=== PATIENT | male | born 1940 | race Caucasian/White ===

== ENCOUNTER 2016-09-13 16:53 | Inpatient (IN) | payer MEDICARE, MEDICAID ==
[~2016-09-13] VITALS: Ht 170.2 cm; Wt 72.6 kg
--- NOTE | 2016-09-13 16:53 | NUR ---
BIB PRIVATE EMT FROM [facility]IN [facility] FOR "AGGRESSIVE BEHAVIOR". PLACED ON MONITOR. AWAITING MD ORDER
--- NOTE | 2016-09-13 17:05 | NUR ---
EKG IN PROGRESS
--- NOTE | 2016-09-13 17:05 | NUR ---
CEMENT BREAKER AT BEDSIDE BLOOD SAMPLE COLLECTED SENT TO LAB
[2016-09-13 17:17] LABS: BASOPHILS % (AUTO) 0.9 % (0.0-2.0); EOSINOPHILS # (AUTO) 0.1 /CMM (0.0-0.7); EOSINOPHILS % (AUTO) 1.9 % (0.0-6.0); HEMATOCRIT 42 % (39-51); HEMOGLOBIN 14.4 g/dL (13.5-17.5); LYMPHOCYTES # (AUTO) 0.8 /CMM (0.8-4.8); LYMPHOCYTES % (AUTO) 15.5 % (20.0-44.0); MEAN CORPUSCULAR HEMOGLOBIN 31 PG (26.0-33.0); MEAN CORPUSCULAR HGB CONC 34 g/dl (31.0-36.0); MEAN CORPUSCULAR VOLUME 91 fL (80-96); MONOCYTES # (AUTO) 0.6 /CMM (0.1-1.30); NEUTROPHILS # (AUTO) 3.7 /CMM (1.8-8.9); NEUTROPHILS % (AUTO) 69.7 % (43.0-81.0); PLATELET COUNT (AUTO) 256 /CMM (150-450); RDW COEFFICIENT OF VARIATION 13.9 (11.5-15.0); RED BLOOD CELL COUNT(AUTO) 4.61 MIL/uL (4.5-6.0); WHITE BLOOD COUNT (AUTO) 5.2 K/uL (4.3-11.0)
[2016-09-13] MEDS ORDERED: ASPI-605 PO (17:18)
[2016-09-13] MEDS ORDERED: SENN-18 PO (17:18)
[2016-09-13] MEDS ORDERED: CHOL100040 PO (17:18)
[2016-09-13] MEDS ORDERED: ATOR20TA PO (17:18)
[2016-09-13] MEDS ORDERED: SPIR25TA4 PO (17:18)
[2016-09-13] MEDS ORDERED: AMLO5TAB4 PO (17:18)
[2016-09-13] MEDS ORDERED: DOCU-170 PO (17:18)
[2016-09-13] MEDS ORDERED: COGENTIN PO (17:18)
--- NOTE | 2016-09-13 17:22 | NUR ---
CALLED [facility]- CHARLENE ETA OF 1 HR
[2016-09-13 17:25] LABS: CALCIUM, SERUM 9.2 mg/dL (8.5-10.1); CARBON DIOXIDE 30 mmol/L (21-32); CHLORIDE 102 mmol/L (98-107); CREATININE 0.8 mg/dL (0.6-1.3); GLUCOSE 133 mg/dL (74-106); POTASSIUM 3.7 mmol/L (3.5-5.1); SODIUM SERUM 139 mmol/L (136-145); UREA NITROGEN, BLOOD 14 mg/dL (7-18)
--- NOTE | 2016-09-13 17:30 | NUR ---
PT HASMICHAEL PROVIDE URINE SAMPLE DR MADDEN AWARE
--- NOTE | 2016-09-13 17:30 | NUR ---
PT TAKEN TO CT VIA [facility]
[2016-09-13 17:31] LABS: ALANINE AMINOTRANSFERASE 51 U/L (12-78); ALBUMIN 3.8 g/dL (3.4-5.0); ALCOHOL, BLOOD < 3 mg/dL (0-0); ALKALINE PHOSPHATASE 93 U/L (46-116); ASPARTATE AMINOTRANSFERASE 42 U/L (15-37); BILIRUBIN,DIRECT 0.2 mg/dL (0.0-0.2); BILIRUBIN,TOTAL 0.5 mg/dL (0.2-1.0); TOTAL PROTEIN, SERUM 7.4 g/dL (6.4-8.2)
[2016-09-13 17:33] LABS: TROPONIN I < 0.017 ng/mL (0.00-0.056)
[2016-09-13 17:41] LABS: THYROID STIMULATING HORMONE 1.839 uIU/mL (0.358-3.74)
--- NOTE | 2016-09-13 18:32 | NUR ---
PINKY AT BEDSIDE FOR PSYCH EVAL
[2016-09-13] MEDS ORDERED: LORAZEPAM INJ 2 MG/ML VIAL IV ONE (19:00)
[2016-09-13] MEDS ORDERED: LORAZEPAM INJ 2 MG/ML VIAL ONE (19:08)
--- NOTE | 2016-09-13 19:18 | NUR ---
GAVE REPORT TO RADHA TUCKER FOR JULIAN
--- NOTE | 2016-09-13 19:21 | NUR ---
REPORT GIVEN TO NIKI SALGADO FOR CONTINUE OF CARE.
--- NOTE | 2016-09-13 19:32 | NUR ---
PT TRANSFERED VIA [facility] TO [facility].
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
[2016-09-13 20:00] VITALS: BP_SYST 145; BP_SYST 168; BP_DIAS 76; BP_DIAS 88
[2016-09-13] MEDS ORDERED: MAGNESIUM HYDROXIDE 30 ML UDC PO PRN (20:00)
[2016-09-13] MEDS ORDERED: MAG HYDROX/AL HYDROX/SIMETH 30 ML UDC PO PRN (20:00)
[2016-09-13] MEDS ORDERED: ACETAMINOPHEN 325 MG TABLET PO PRN (20:00)
[2016-09-13 20:29] LABS: CHOLESTEROL 188 mg/dL (<200); HDL CHOLESTEROL 84 mg/dL (40-60); LDL 80 mg/dL (0-99); TRIGLYCERIDES 42 mg/dL (30-150)
[2016-09-13] MEDS ORDERED: TEMAZEPAM 7.5 MG CAPSULE ONE (22:15)
[2016-09-13] MEDS: TEMAZEPAM 7.5 MG CAPSULE PO PRN (22:23)
--- NOTE | 2016-09-13 22:23 | NUR ---
GPS RN NOTE, PATIENT HAS A COMPLAINT OF NOT BEING ABLE TO SLEEP AND WOULD LIKE A SLEEPING AID AT THIS TIME. PATIENT VITAL SIGNS ARE STABLE. GAVE RESTORIL 7.5MG PO HS ORDERED. WILL REASSESS FOR INSOMNIA AND I WILL CONTINUE TO MONITOR THIS PATIENT.
[2016-09-13] MEDS ORDERED: ATORVASTATIN 10 MG TABLET ONE (22:50)
[2016-09-13] MEDS ORDERED: AMLODIPINE BESYLATE 5 MG TABLET ONE (22:51)
[2016-09-13] MEDS: AMLODIPINE BESYLATE 5 MG TABLET PO SCH (22:56)
[2016-09-13] MEDS: ATORVASTATIN 10 MG TABLET PO SCH (22:56)
--- NOTE | 2016-09-13 22:56 | NUR ---
GPS RN NOTE, PATIENT B/P IS 145/76 GAVE NORVASC 5MG PO Q12HR AND LIPITOR 20MG PO HS ORDERED. WILL CONTINUE TO MONITOR THIS PATIENT.
[2016-09-14] MEDS ORDERED: LORAZEPAM 0.5 MG TABLET ONE (03:31)
[2016-09-14] MEDS: LORAZEPAM 0.5 MG TABLET PO PRN (03:35)
--- NOTE | 2016-09-14 03:35 | NUR ---
GPS RN NOTE, PATIENT HAS A COMPLAINT OF FEELING ANXIOUS AND WOULD LIKE MEDICATION AT THIS TIME. PATIENT VITAL SIGNS ARE STABLE. GAVE ATIVAN 0.5MG PO Q6HR PRN ORDERED. WILL REASSESS FOR ANXIETY AND I WILL CONTINUE TO MONITOR THIS PATIENT.
[2016-09-14 08:00] VITALS: BP 143/73
[2016-09-14] MEDS: DOCUSATE SODIUM 100 MG CAPSULE PO SCH ×2 (08:34→16:25)
[2016-09-14] MEDS: ASPIRIN EC 81 MG TABLET.DR PO SCH (08:34)
[2016-09-14] MEDS: SPIRONOLACTONE 25 MG TABLET PO SCH (08:34)
[2016-09-14] MEDS: CHOLECALCIFEROL 1,000 UNIT TABLET (VIT D3) PO SCH (08:34)
[2016-09-14 08:42] LABS: BASOPHILS # (AUTO) 0.1 /CMM (0.0-0.2); BASOPHILS % (AUTO) 1.9 % (0.0-2.0); EOSINOPHILS # (AUTO) 0.2 /CMM (0.0-0.7); EOSINOPHILS % (AUTO) 3.5 % (0.0-6.0); HEMATOCRIT 42 % (39-51); HEMOGLOBIN 14.4 g/dL (13.5-17.5); LYMPHOCYTES # (AUTO) 1.2 /CMM (0.8-4.8); LYMPHOCYTES % (AUTO) 24.4 % (20.0-44.0); MEAN CORPUSCULAR HEMOGLOBIN 31 PG (26.0-33.0); MEAN CORPUSCULAR HGB CONC 34 g/dl (31.0-36.0); MEAN CORPUSCULAR VOLUME 91 fL (80-96); MONOCYTES # (AUTO) 0.7 /CMM (0.1-1.30); NEUTROPHILS # (AUTO) 2.6 /CMM (1.8-8.9); NEUTROPHILS % (AUTO) 55.2 % (43.0-81.0); PLATELET COUNT (AUTO) 246 /CMM (150-450); RDW COEFFICIENT OF VARIATION 12.7 (11.5-15.0); RED BLOOD CELL COUNT(AUTO) 4.64 MIL/uL (4.5-6.0); WHITE BLOOD COUNT (AUTO) 4.8 K/uL (4.3-11.0)
[2016-09-14 08:49] LABS: ALANINE AMINOTRANSFERASE 56 U/L (12-78); ALBUMIN 3.9 g/dL (3.4-5.0); ALKALINE PHOSPHATASE 92 U/L (46-116); ASPARTATE AMINOTRANSFERASE 45 U/L (15-37); BILIRUBIN,TOTAL 0.5 mg/dL (0.2-1.0); CALCIUM, SERUM 9.7 mg/dL (8.5-10.1); CARBON DIOXIDE 26 mmol/L (21-32); CHLORIDE 102 mmol/L (98-107); CREATININE 0.7 mg/dL (0.6-1.3); GLUCOSE 104 mg/dL (74-106); POTASSIUM 3.7 mmol/L (3.5-5.1); SODIUM SERUM 139 mmol/L (136-145); TOTAL PROTEIN, SERUM 7.5 g/dL (6.4-8.2); UREA NITROGEN, BLOOD 14 mg/dL (7-18)
--- NOTE | 2016-09-14 11:21 | NUR ---
[id number]-RC-[id number]: NOTIFIED DR. CADE ABOUT RESULTS FOR CT OF THE HEAD AND CT OF FACIAL BONES. PT IS . DR. CADE SAID PT IS GOING TO SEE A ENT PHYSICIAN TOMORROW.
--- NOTE | 2016-09-14 11:31 | NUR ---
[id number]: DR. CADE ORDERED PHYSICIAN CONSULT FOR DR. RINCON TO COME SEE PT TOMORROW
[2016-09-14 11:45] VITALS: BP 144/75
[2016-09-14] MEDS: AMLODIPINE BESYLATE 5 MG TABLET PO SCH ×2 (11:50→23:58)
[2016-09-14] MEDS ORDERED: clonazePAM 0.5 MG TABLET PO PRN (12:00)
[2016-09-14] MEDS: OLANZAPINE 5 MG/TAB.RAPDIS PO SCH ×2 (12:09→16:25)
[2016-09-14] MEDS: OXCARBAZEPINE 150 MG TABLET PO SCH ×2 (12:09→16:25)
[2016-09-14 16:05] VITALS: BP 141/73
[2016-09-14] MEDS ORDERED: SODIUM POLYSTYRENE SULFONATE 15 G/60 ML BOTTLE PO ONE (17:00)
[2016-09-14 20:37] VITALS: BP 123/69
[2016-09-14] MEDS: SENNOSIDES 8.6 MG TABLET PO SCH (21:29)
[2016-09-14] MEDS: ATORVASTATIN 10 MG TABLET PO SCH (21:29)
[2016-09-14] MEDS: TRAZODONE 50 MG TABLET PO SCH (21:30)
[2016-09-15 08:00] VITALS: BP 135/62
[2016-09-15] MEDS: ASPIRIN EC 81 MG TABLET.DR PO SCH (08:40)
[2016-09-15] MEDS: SPIRONOLACTONE 25 MG TABLET PO SCH (08:40)
[2016-09-15] MEDS: DOCUSATE SODIUM 100 MG CAPSULE PO SCH ×2 (08:40→16:34)
[2016-09-15] MEDS: OXCARBAZEPINE 150 MG TABLET PO SCH ×3 (08:41→16:34)
[2016-09-15] MEDS: OLANZAPINE 5 MG/TAB.RAPDIS PO SCH ×3 (08:41→16:34)
[2016-09-15] MEDS: CHOLECALCIFEROL 1,000 UNIT TABLET (VIT D3) PO SCH (08:43)
[2016-09-15] MEDS: AMLODIPINE BESYLATE 5 MG TABLET PO SCH ×2 (11:47→22:18)
--- NOTE | 2016-09-15 14:38 | NUR ---
[id number]: NOTIFIED DR. CADE THAT DR. RINCON SEEN AND EXAMINED PT AND STATED, "THERE IS NOTHING TO DO AT THIS TIME." NO NEW ORDER GIVEN.
[2016-09-15 16:20] VITALS: BP 150/90
[2016-09-15 20:41] VITALS: BP 143/70
[2016-09-15] MEDS: SENNOSIDES 8.6 MG TABLET PO SCH (22:00)
[2016-09-15] MEDS: ATORVASTATIN 10 MG TABLET PO SCH (22:00)
[2016-09-15] MEDS: TRAZODONE 50 MG TABLET PO SCH (22:00)
[2016-09-16 08:00] VITALS: BP 150/78
[2016-09-16] MEDS: CHOLECALCIFEROL 1,000 UNIT TABLET (VIT D3) PO SCH (08:28)
[2016-09-16] MEDS: SPIRONOLACTONE 25 MG TABLET PO SCH (08:28)
[2016-09-16] MEDS: ASPIRIN EC 81 MG TABLET.DR PO SCH (08:28)
[2016-09-16] MEDS: OXCARBAZEPINE 150 MG TABLET PO SCH ×3 (08:29→16:58)
[2016-09-16] MEDS: DOCUSATE SODIUM 100 MG CAPSULE PO SCH ×2 (08:29→16:58)
[2016-09-16] MEDS: OLANZAPINE 5 MG/TAB.RAPDIS PO SCH ×3 (08:29→16:58)
--- NOTE | 2016-09-16 09:27 | NUR ---
Initial Discharge Plan: Patient was residing at [address] [address] ([phone]). research worker kitchen spoke to patient's friend Frieda Mahesh ([phone]) who stated that patient has been in and out of psychiatric hospitals and facilities. research worker kitchen spoke to Gopi from the facility who stated that patient was not appropriate for their facility as he is an elopement risk. research worker kitchen will help form a safe and proper discharge.
[2016-09-16] MEDS: AMLODIPINE BESYLATE 5 MG TABLET PO SCH ×2 (11:33→22:07)
--- NOTE | 2016-09-16 12:26 | NUR ---
relay worker faxed initial review packet to Jaclyn from [facility] (phone: [phone]/ ). relay worker will follow-up.
--- NOTE | 2016-09-16 15:19 | NUR ---
WOUND CARE CONSULT: LIMITED ASSESSMENT TODAY DUE TO PT AGITATED AND BECOMES COMBATIVE AT TIMES. PT NOT TURNED FOR FULL SKIN ASSESSMENT OF BACK AND BUTTOCKS. PT SEEN FOR NOSE ABRASIONS, DRY AND RED. PT SEEN BY DR REYNOLDS AND ORDERS RECEIVED. DISCUSSED WITH NURSING STAFF. RECOMMENDATIONS MADE FOR SKIN PROTECTION AND DISCUSSED WITH NURSING STAFF. WILL SEE PRN. PT TO BE TURNED AND REPOSITIONED EVERY 2 HRS PT CONDITION PERMITS, HEELS FLOATED. MD IN AGREEMENT WITH PLAN OF CARE. Addendum: 09/16/16 at 1523 by EUGENIO BRAGG WNDNU Amended: Links added.
[2016-09-16] MEDS ORDERED: Z GUARD REMEDY 2 OZ OINT TP PRN (15:30)
[2016-09-16 16:00] VITALS: BP 134/81
[2016-09-16] MEDS: NEOMY SULF/BACITRAC ZN/POLY 15 GM TUBE TP SCH (17:42)
[2016-09-16 19:54] VITALS: BP 153/85
[2016-09-16] MEDS: TRAZODONE 50 MG TABLET PO SCH (21:54)
[2016-09-16] MEDS: SENNOSIDES 8.6 MG TABLET PO SCH (21:55)
[2016-09-16] MEDS: ATORVASTATIN 10 MG TABLET PO SCH (21:55)
[2016-09-16] MEDS: Z GUARD REMEDY 2 OZ OINT TP SCH (22:08)
[2016-09-17 08:00] VITALS: BP 137/76
[2016-09-17] MEDS: SPIRONOLACTONE 25 MG TABLET PO SCH (08:26)
[2016-09-17] MEDS: OLANZAPINE 5 MG/TAB.RAPDIS PO SCH ×3 (08:26→16:11)
[2016-09-17] MEDS: OXCARBAZEPINE 150 MG TABLET PO SCH ×3 (08:26→16:11)
[2016-09-17] MEDS: ASPIRIN EC 81 MG TABLET.DR PO SCH (08:26)
[2016-09-17] MEDS: DOCUSATE SODIUM 100 MG CAPSULE PO SCH ×2 (08:26→16:11)
[2016-09-17] MEDS: Z GUARD REMEDY 2 OZ OINT TP SCH (08:26)
[2016-09-17] MEDS: CHOLECALCIFEROL 1,000 UNIT TABLET (VIT D3) PO SCH (08:26)
[2016-09-17] MEDS: NEOMY SULF/BACITRAC ZN/POLY 15 GM TUBE TP SCH (08:27)
--- NOTE | 2016-09-17 10:47 | NUR ---
WOUND CARE: PT INCONTINENT AND HAS DIFFICULTY WITH MOBILITY. SMALL DRY SCAB NOTED TO BACK, PRESENT ON ADMISSION. CONTINUE ALL SKIN PROTECTION MEASURES. DISCUSSED WITH NURSING STAFF. WILL SEE PRN. RECIO IN AGREEMENT WITH PLAN OF CARE. Addendum: 09/17/16 at 1048 by EUGENIO BRAGG WNDNU Amended: Links added.
[2016-09-17] MEDS: AMLODIPINE BESYLATE 5 MG TABLET PO SCH ×2 (12:20→22:02)
[2016-09-17 16:00] VITALS: BP 136/69
[2016-09-17 20:23] VITALS: BP 122/82
[2016-09-17] MEDS: SENNOSIDES 8.6 MG TABLET PO SCH (22:00)
[2016-09-17] MEDS: TRAZODONE 50 MG TABLET PO SCH (22:00)
[2016-09-17] MEDS: ATORVASTATIN 10 MG TABLET PO SCH (22:01)
[2016-09-18] MEDS: TEMAZEPAM 7.5 MG CAPSULE PO PRN (00:31)
[2016-09-18 08:03] VITALS: BP 130/70
[2016-09-18] MEDS: NEOMY SULF/BACITRAC ZN/POLY 15 GM TUBE TP SCH ×2 (09:00→09:13)
[2016-09-18] MEDS: DOCUSATE SODIUM 100 MG CAPSULE PO SCH ×3 (09:00→17:00)
[2016-09-18] MEDS: OLANZAPINE 5 MG/TAB.RAPDIS PO SCH ×4 (09:00→17:00)
[2016-09-18] MEDS: ASPIRIN EC 81 MG TABLET.DR PO SCH ×2 (09:00→09:12)
[2016-09-18] MEDS: SPIRONOLACTONE 25 MG TABLET PO SCH ×2 (09:00→09:12)
[2016-09-18] MEDS: CHOLECALCIFEROL 1,000 UNIT TABLET (VIT D3) PO SCH ×2 (09:00→09:12)
[2016-09-18] MEDS: OXCARBAZEPINE 150 MG TABLET PO SCH ×3 (09:12→17:00)
[2016-09-18] MEDS: Z GUARD REMEDY 2 OZ OINT TP SCH (09:13)
--- NOTE | 2016-09-18 09:13 | NUR ---
administered klonopin 0.5 mg po prn for anxiety, paranoia, v/s taken bp-110/72, p-76, continued monitoring.
[2016-09-18] MEDS: AMLODIPINE BESYLATE 5 MG TABLET PO SCH ×2 (11:00→22:04)
--- NOTE | 2016-09-18 12:34 | NUR ---
older worker specialist faxed initial review packet to [facility] (phone: [phone]/ fax: [phone]) [address] [facility] [address]. However, medical social worker spoke to Yue from admissions who stated that they cannot except the patient because they ran his insurance and he did not have any medicare days. older worker specialist will follow-up
[2016-09-18 15:39] VITALS: BP 142/64
--- NOTE | 2016-09-18 15:43 | NUR ---
cone worker spoke to Jaclyn from [facility] (phone: [phone]/ ). who stated that they cannot accept the patient at the moment due to insurance day availability. cone worker will follow-up.
--- NOTE | 2016-09-18 17:50 | NUR ---
PATIENT REFUSED 1300, AND 1700 MEDICATION, EXPLAINED IMPORTANT OF TAKING MEDICATION, BUT STILL REFUSED, MD MILLS, AND EROS NICHOLSON AWARE OF, CONTINUED MONITORING.
[2016-09-18 20:00] VITALS: BP 159/95
[2016-09-18 20:14] VITALS: BP 159/95
--- NOTE | 2016-09-18 20:20 | NUR ---
GPS RN OPENING NOTES: Received patient in bed , awake, alert to name, confused and disorganized. Verbally responsive to stimuli. No complain of any pain or discomfort. On room air. No acute respiratory distress noted. Up in the gerichair . Safety measures maintained. Clean and dry. Will continue to monitor.
[2016-09-18] MEDS: TRAZODONE 50 MG TABLET PO SCH (21:42)
[2016-09-18] MEDS: ATORVASTATIN 10 MG TABLET PO SCH (21:42)
[2016-09-18] MEDS: SENNOSIDES 8.6 MG TABLET PO SCH (21:42)
[2016-09-19] MEDS: TEMAZEPAM 7.5 MG CAPSULE PO PRN (00:02)
[2016-09-19] MEDS: LORAZEPAM 0.5 MG TABLET PO PRN (00:02)
[2016-09-19 08:33] VITALS: BP 143/75
[2016-09-19] MEDS: OLANZAPINE 5 MG/TAB.RAPDIS PO SCH ×2 (08:43→17:40)
[2016-09-19] MEDS: SPIRONOLACTONE 25 MG TABLET PO SCH (08:44)
[2016-09-19] MEDS: DOCUSATE SODIUM 100 MG CAPSULE PO SCH ×2 (08:44→17:40)
[2016-09-19] MEDS: OXCARBAZEPINE 150 MG TABLET PO SCH ×3 (08:44→17:40)
[2016-09-19] MEDS: CHOLECALCIFEROL 1,000 UNIT TABLET (VIT D3) PO SCH (08:45)
[2016-09-19] MEDS: ASPIRIN EC 81 MG TABLET.DR PO SCH (08:45)
[2016-09-19] MEDS: Z GUARD REMEDY 2 OZ OINT TP SCH (08:51)
[2016-09-19] MEDS: NEOMY SULF/BACITRAC ZN/POLY 15 GM TUBE TP SCH (08:51)
[2016-09-19] MEDS: AMLODIPINE BESYLATE 5 MG TABLET PO SCH (11:54)
--- NOTE | 2016-09-19 15:12 | NUR ---
DR. BARNEY GAVE AN ORDER TO D/C HOLD AND D/C TO [facility]. PT. WITHOUT DISTRESS, DENIES SUICIDAL AND HOMICIDAL. TO FOLLOW UP WITH PSYCH AND MEDICAL DOCTORS.
[2016-09-19 15:27] VITALS: BP 139/78
--- NOTE | 2016-09-19 17:08 | NUR ---
Discharge Note: Patient was discharged to [address] [facility] [address] ([phone]). via [email or web address] response. patient's friend Frieda Navarro ([phone]) has been notified and was agreeable with the discharge plan. Patient's mood and affect were appropriate upon discharge. Patient denied suicidal and homicidal ideations. Facilitated info to IDT team who are in agreement with discharge arrangement. The multidisciplinary exitcare form was done, printed, signed, and given to the patient.
--- NOTE | 2016-09-19 17:55 | NUR ---
GPS RN: PATIENT DISCHARGED TO [facility]. PATIENT'S CONDITION IS STABLE FOR DISCHARGE, VS STABLE. NO VERBALIZATION OF SI/HI. NO BEHAVIORAL PROBLEMS. ALL BELONGINGS RETURNED TO THE PATIENT. MEDICATIONS RECONCILED AND THE COPY OF THE CURRENT MED LIST PROVIDED TO THE PATIENT. REPORT GIVEN TO BRADEN WILEY. PATIENT LEFT THE UNIT ON A GURNEY [facility]IA [facility].
== END 2016-09-19 17:55 | DRG 885 ==
LOC: ER 16:55 → GPS 19:00
PROVIDERS: ADMIT Psychiatry & Neurology Psychiatry
DX: F31.9 Bipolar disorder, unspecified (principal); F03.91 Unspecified dementia, unspecified severity, with behavioral disturbance; I10 Essential (primary) hypertension; E78.5 Hyperlipidemia, unspecified; I25.10 Atherosclerotic heart disease of native coronary artery without angina pectoris; F29 Unspecified psychosis not due to a substance or known physiological condition; Z79.899 Other long term (current) drug therapy; Z87.442 Personal history of urinary calculi; R73.9 Hyperglycemia, unspecified; S02.2XXA Fracture of nasal bones, initial encounter for closed fracture; W19.XXXA Unspecified fall, initial encounter; Y93.9 Activity, unspecified; Y92.129 Unspecified place in nursing home as the place of occurrence of the external cause; S00.10XA Contusion of unspecified eyelid and periocular area, initial encounter; S00.81XA Abrasion of other part of head, initial encounter; S80.812A Abrasion, left lower leg, initial encounter; S80.811A Abrasion, right lower leg, initial encounter; Z73.6 Limitation of activities due to disability; R29.6 Repeated falls
CPT/HCPCS: 36415; 70450-TC; 70486-TC; 80048-TC; 80053-TC; 80061-TC; 80076-TC; 84443-TC; 84484-TC; 85025-TC; 87081-TC; 92611-TC; 97001-TC; 97116-TC; 97530-TC; A4606; G0480; J2060; Z7610